=== PATIENT | female | born 1995 | race Caucasian/White ===

== ENCOUNTER → 2024-10-22 | Outpatient (CLI) | payer OTHER ==
[2024-10-22 19:20] LABS: Candida glabrata-krusei, PCR NOT DETECTED (NOT DETECT)
[2024-10-23 00:03] LABS: Bacterial Vaginosis PCR Positive (NEGATIVE); Candida Group, PCR DETECTED (NOT DETECT)
== END ==
LOC: LAB 17:17 → LAB SHORT 17:17
PROVIDERS: Obstetrics & Gynecology
DX: N89.8 Other specified noninflammatory disorders of vagina (principal)
CPT/HCPCS: 81515; 87624; G0123; G0145

== ENCOUNTER → 2024-11-21 | Outpatient (CLI) | payer OTHER ==
[2024-11-21 13:23] LABS: Candida glabrata-krusei, PCR NOT DETECTED (NOT DETECT)
[2024-11-21 14:33] LABS: Bacterial Vaginosis PCR Positive (NEGATIVE); Candida Group, PCR DETECTED (NOT DETECT)
== END ==
LOC: LAB SHORT 10:40 → LAB 10:40
PROVIDERS: Obstetrics & Gynecology
DX: N89.8 Other specified noninflammatory disorders of vagina (principal)
CPT/HCPCS: 81515

== ENCOUNTER 2024-11-28 10:17 | Day surgery (SDC) | payer OTHER ==
[~2024-11-28] VITALS: Ht 154.9 cm; Wt 79.8 kg
[2024-11-28 11:42] LABS: BASOPHILS ABSOLUTE AUTO 0.05 K/mm3 (0.00-0.23); BASOPHILS PERCENT AUTO 1 % (0-2); EOSINOPHILS ABSOLUTE AUTO 0.14 K/mm3 (0.00-0.68); EOSINOPHILS PERCENT AUTO 2 % (0-6); Hematocrit 43.2 % (33.0-51.0); Hemoglobin 14.5 g/dL (11.5-16.0); IMMATURE GRAN ABSOLUTE AUTO 0.01 K/mm3 (0.00-0.10); IMMATURE GRAN PERCENT AUTO 0 % (0-1); LYMPHOCYTES ABSOLUTE AUTO 1.80 K/mm3 (0.84-5.20); LYMPHOCYTES PERCENT AUTO 30 % (21-46); MONOCYTES ABSOLUTE AUTO 0.30 K/mm3 (0.16-1.47); MONOCYTES PERCENT AUTO 5 % (4-13); Mean Corpuscular HGB Conc 33.6 g/dL (31.5-36.5); Mean Corpuscular Volume 88 fL (80-100); NEUTROPHILS ABSOLUTE AUTO 3.62 K/mm3 (1.96-9.15); NEUTROPHILS PERCENT AUTO 61 % (41-73); NRBC ABSOLUTE 0.00 K/mm3 (0.00-0.02); NRBC Auto 0.0 /100 WBC (0.0-0.2); Platelet Count 226 K/mm3 (150-400); RDW Coefficient Variation 12.6 % (11.7-14.2); RDW Standard Deviation 41.1 fL (35.1-46.3)
[2024-11-28] MEDS ORDERED: Lidocaine 1%-Epineph 1:100000 20 ML MDV ONE (12:12)
--- NOTE | 2024-11-28 12:22 | NUR ---
11/28/24 1222 Delilah Hoffman 1222: 1000 MG TYLENOL PO GIVEN PER PRE-OP ORDER FROM DR RASCON
[2024-11-28] MEDS ORDERED: FentaNYL Citrate 50 MCG/ML 2 ML Injection ONE (12:24)
[2024-11-28] MEDS ORDERED: Dexamethasone Sod Phos 10 MG/ML 1ML VIAL ONE (12:25)
[2024-11-28] MEDS ORDERED: Ondansetron HCl 2 MG / ML 2ML Vial ONE (12:25)
--- NOTE | 2024-11-28 13:43 | NUR ---
11/28/24 1343 UNA CHAVEZ PT IN AT BEDSIDE. PT LAUGHING AND FRIENDLY
== END 2024-11-28 14:22 | disposition home or self-care (01) ==
LOC: ORSCSDS 10:17
PROVIDERS: Obstetrics & Gynecology
PROC: 0UBC7ZX Excision of Cervix, Via Natural or Artificial Opening, Diagnostic (ICD-10-PCS; principal; 2024-11-28 12:00)
DX: N84.1 Polyp of cervix uteri (principal)
CPT/HCPCS: 85025; 88305; A9270; J1100; J2405; J2704; J3010; J7120